=== PATIENT | male | born 1995 | race African-American/Black ===

== ENCOUNTER → 2019-11-14 | Emergency (ER) | payer MEDICAID ==
[~2019-11-14] VITALS: Ht 177.8 cm; Wt 83.9 kg
[~2019-11-14] MED LIST: ONDANSETRON HCL 4 MG/2 ML VIAL IV ONE; ONDANSETRON HCL 4 MG/2 ML VIAL ONE; PROMETHAZINE HCL 25 MG/ML 1ML IV ONE; SODIUM CHLORIDE 0.9% 1,000 ML IV ONE
[2019-11-14 01:40] VITALS: BP 137/79
[2019-11-14 03:00] LABS: Basophils # (auto) 0.2 10 ^3/uL (0-0.2); Basophils % (auto) 1.2 % (0.0-2.0); Eosinophils # (auto) 0 10 ^3/uL (0-0.8); Eosinophils % (auto) 0.3 % (0.0-7.0); Hematocrit 49.9 % (41.0-53.0); Hemoglobin 17.1 g/dL (13.5-17.5); Lymphocytes # (auto) 1.4 10 ^3/uL (0.4-5.4); Lymphocytes % (auto) 10.6 % (10.0-50.0); Mean Corpuscular Hemoglobin 33.9 pg (28.0-32.0); Mean Corpuscular Hgb Conc. 34.2 g/dL (32.0-36.0); Monocytes % (auto) 7.6 % (0.0-12.0); Neutrophils # (auto) 10.8 10 ^3/uL (1.6-8.6); Neutrophils % (auto) 80.3 % (37.0-80.0); Platelet Count (auto) 256 10^3/uL (140-450); Red Blood Cells 5.04 10^6/uL (4.5-5.90); Red Cell Distribution Width 14.1 % (11.8-14.3); White Blood Cell 13.4 10^3/uL (4.4-10.8)
[2019-11-14 03:05] LABS: Albumin 3.4 g/dL (3.4-5.0); BUN/Creatinine Ratio 10.7; Calcium 9.1 mg/dL (8.5-10.1); Potassium 4.2 mmol/L (3.5-5.1)
[2019-11-14 03:08] LABS: Bilirubin, Total 0.2 mg/dL (0.2-1.0); Total Protein 8.2 g/dL (6.4-8.2)
== END | disposition home or self-care (01) ==
LOC: ER 01:26
DX: K52.9 Noninfective gastroenteritis and colitis, unspecified (principal)
CPT/HCPCS: 36415; 74176; 80053; 82150; 83690; 85025; 96361; 96374; 96375; 99284; J2405; J2550

== ENCOUNTER 2022-10-04 06:45 | Emergency (ER) | payer MEDICAID ==
[~2022-10-04] VITALS: Ht 172.7 cm; Wt 94.8 kg
[2022-10-04 09:48] VITALS: BP 137/89
[2022-10-04] MEDS ORDERED: cefTRIAXone SOD 1,000 MG VL IM ONE (10:45)
[2022-10-04] MEDS ORDERED: DexAMETHasone SOD PHOS 10MG/1ML VIAL INJ IM ONE (10:45)
[2022-10-04] MEDS ORDERED: PENI500T2 PO (11:12)
[2022-10-04] MEDS ORDERED: ACET1CAP14 PO (11:12)
[2022-10-04] MEDS ORDERED: PRED20TA2 PO (11:12)
[2022-10-04] MEDS ORDERED: BENZ1LOZ3 MT (11:12)
== END 2022-10-04 11:43 | disposition home or self-care (01) ==
LOC: ER 06:45
DX: J02.0 Streptococcal pharyngitis (principal); Z79.899 Other long term (current) drug therapy
CPT/HCPCS: 87880; 96372; 99284; J0696; J1100

== ENCOUNTER 2024-12-20 06:24 | Inpatient (IN) | payer MEDICAID ==
[~2024-12-20] VITALS: Ht 162.6 cm; Wt 86.5 kg
[~2024-12-20 06:24] MED LIST changes: +ACET1CAP14 PO; +BENZ1LOZ3 MT; -ONDANSETRON HCL 4 MG/2 ML VIAL IV ONE; -ONDANSETRON HCL 4 MG/2 ML VIAL ONE; +PENI500T2 PO; +PRED20TA2 PO; -PROMETHAZINE HCL 25 MG/ML 1ML IV ONE; -SODIUM CHLORIDE 0.9% 1,000 ML IV ONE
--- NOTE | 2024-12-20 06:42 | ED.PDOC ---
HPI Comments 29 y/o M, brought in by mother presents to the ED for CC of chest pain. Patient states, that he has been experiencing left-sided chest pain with associated symptoms of shortness of breath since, 0300 this morning (12/20/24). Patient relays, that chest pain woke him up out of his sleep. Mother reports, patient has an appointment with his Chronic Manager tomorrow (12/21/24) for an echocardiogram. Patient denies dizziness, headache, back pain, or palpitations. No other symptoms or modifying factors present at this time. Time Seen by MD: 06:34 Reviewed Notes: Nurses Notes, Medications, Allergies Allergies: Coded Allergies: NO KNOWN ALLERGIES (Unverified , 11/14/19) Home Meds Active Scripts Acetaminophen (Tylenol) 325 Mg Cap, 325 MG PO Q4HPRN PRN, #30 CAP 0 Refills Take 1-2 caps po q4h prn for pain/fever Prov:SEGALLATHA JOSHUA [facility] 10/04/22 Benzocaine-Menthol (Mouth-Thro (Cepacol Sore Throat Extra 15-3.6 mg) 1 Blanca Blanca, 1 BLANCA MT Q2HPRN PRN, #16 BLANCA 0 Refills Prov:SEGALLATHA Cisneros [facility] 10/04/22 Prednisone (Prednisone) 20 Mg Tab, 20 MG PO DAILY for 5 Days, #5 TAB 0 Refills Prov:MARYURI SEGALRA Cisneros [facility] 10/04/22 Penicillin V Potassium (Veetids) 500 Mg Tab, 1 TAB PO BID for 10 Days, #20 TAB 0 Refills Prov:SEGALLATHA M [facility] 10/04/22 Information Source: Patient, Relative (Mother) Mode of Arrival: Ambulatory Severity: Moderate Timing: Hours Duration: Since onset Prehospital treatment: None Location: Chest (L) Radiation: No Radiation Quality: Sharp Onset: At Rest Cardiac Risk Factors: Hyperlipidemia PE Risk Factors: None History of: None Modifying Factors: Nothing Associated Signs and Symptoms: Palpitations Past Medical History PAST MEDICAL HISTORY: High Lipids Past Medical History (Other): DOWN SYNDROME, HEART MURMUR Surgical History: Denies all surgeries Family History Family History: Reviewed,noncontributory to illness Social History Smoker: Non-Smoker Alcohol: Denies ETOH Use Drugs: Denies Drug Use Lives In: Home Constitutional: reports: fatigue, weakness; denies: chills, diaphoresis, fever, malaise, sweats, others EENTM: denies: blurred vision, double vision, ear bleeding, ear discharge, ear drainage, ear pain, ear ringing, eye pain, eye redness, hearing loss, mouth pain, mouth swelling, nasal discharge, nose bleeding, nose congestion, nose pain, photophobia, tearing, throat pain, throat swelling, voice changes, others Respiratory: reports: shortness of breath; denies: cough, hemoptysis, orthopnea, SOB at rest, SOB with excertion, stridor, wheezing, others Cardiovascular: reports: chest pain; denies: dizzy spells, diaphoresis, Dyspnea on exertion, edema, irregular heart beat, left arm pain, lightheadedness, palpitations, PND, syncope, others Gastrointestinal: denies: abdomen distended, abdominal pain, blood streaked bowels, constipated, diarrhea, dysphagia, difficulty swallowing, hematemesis, melena, nausea, poor appetite, poor fluid intake, rectal bleeding, rectal pain, vomiting, others Genitourinary: denies: burning, dysuria, flank pain, frequency, hematuria, incontinence, penile discharge, penile sore, pain, testicle pain, testicle swelling, urgency, others Neurological: denies: dizziness, fainting, headache, left sided numbness, left sided weakness, numbness, paresthesia, pre-existing deficit, right sided numbness, right sided weakness, seizure, speech problems, tingling, tremors, weakness, others Musculoskeletal: denies: back pain, gout, joint pain, joint swelling, muscle pain, muscle stiffness, neck pain, others Integumetry: denies: bruises, change in color, change in hair/nails, dryness, laceration, lesions, lumps, rash, wounds, others Allergic/Immunocompromised: denies: Difficulty Healing, Frequent Infections, Hives, Itching, others Hematologic/Lymphatic: denies: anemia, blood clots, easy bleeding, easy bruising, swollen glands, others Endocrine: denies: excessive hunger, excessive sweating, excessive thirst, excessive urination, flushing, intolerance to cold, intolerance to heat, unexplained weight gain, unexplained weight loss, others Psychiatric: denies: anxiety, bipolar disorder, depression, hopeless, panic disorder, schizophrenia, sleepless, suicidal, others All Other Systems: Reviewed and Negative Physical Exam General Appearance: Moderate Distress, Obese HEENT: Normal ENT Inspection, Pharynx Normal, TMs Normal Neck: Full Range of Motion, Non-Tender, Normal, Normal Inspection Respiratory: Chest Non-Tender, Lungs Clear, No Accessory Muscle Use, No Respiratory Distress, Normal Breath Sounds Cardiovascular: No Edema, No JVD, No Murmur, No Gallop, Normal Peripheral Pulses, Regular Rate/Rhythm Breast Exam: Deferred Gastrointestinal: No Organomegaly, Non Tender, No Pulsatile Mass, Normal Bowel Sounds, Soft Genitalia: Deferred Pelvic: Deferred Rectal: Deferred Extremities: No calf tenderness, Normal capillary refill, Normal inspection, Normal range of motion, Non-tender, No pedal edema Musculoskeletal : Apperance: Normal Neurologic: Alert, 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 Was a procedure done?: No CP Differential Dx Differential Diagnosis: N/A Differential Diagnosis: Chest Wall Pain, Costochondritis, Pneumonia X-Ray, Labs, Meds, VS Vital Signs Date Time Temp Pulse Resp B/P (MAP) Pulse Ox O2 Delivery O2 Flow Rate FiO2 12/20/24 08:00 56 12/20/24 08:00 66 16 99 Room Air* 0 21 12/20/24 07:45 98.5 66 16 127/46 (73) 99 98.5 12/20/24 07:26 75 12/20/24 06:51 83 100 Room Air* 0 21 12/20/24 06:50 98.7 52 18 148/53 (84) 99 98.7 12/20/24 06:42 88 12/20/24 06:34 88 12/20/24 06:34 97.9 82 16 131/51 (77) 97 97.9 Lab Test 12/20/24 07:28 12/20/24 06:40 Range/Units Troponin I High Sensitivity 9 9 </=54 ng/L White Blood Count 6.8 4.4-10.8 10^3/uL Red Blood Count 4.99 4.5-5.90 10^6/uL Hemoglobin 15.1 13.5-17.5 g/dL Hematocrit 45.5 41.0-53.0 % Mean Corpuscular Volume 91.1 80.0-100.0 fL Mean Corpuscular Hemoglobin 30.3 28.0-32.0 pg Mean Corpuscular Hemoglobin Concent 33.3 32.0-36.0 g/dL Red Cell Distribution Width 15.9 H 11.8-14.3 % Platelet Count 230 140-450 10^3/uL Mean Platelet Volume 8.9 6.9-10.8 fL Neutrophils (%) (Auto) 57.8 37.0-80.0 % Lymphocytes (%) (Auto) 22.1 10.0-50.0 % Monocytes (%) (Auto) 14.5 H 0.0-12.0 % Eosinophils (%) (Auto) 1.4 0.0-7.0 % Basophils (%) (Auto) 4.2 H 0.0-2.0 % Neutrophils # (Auto) 3.9 1.6-8.6 10 ^3/uL Lymphocytes # (Auto) 1.5 0.4-5.4 10 ^3/uL Monocytes # (Auto) 1.0 0-1.3 10 ^3/uL Eosinophils # (Auto) 0.1 0-0.8 10 ^3/uL Basophils # (Auto) 0.3 H 0-0.2 10 ^3/uL Nucleated Red Blood Cells 0.1 % Prothrombin Time 10.6 9.3-11.8 sec Prothrombin Time INR 1.00 0.9-1.15 Activated Partial Thromboplast Time 26.5 24.5-34.5 SEC D-Dimer, Quantitative 0.27 0.0-0.49 mg/L FEU Sodium Level 142 136-145 mmol/L Potassium Level 4.3 3.5-5.1 mmol/L Chloride Level 107 98-107 mmol/L Carbon Dioxide Level 28 20-31 mmol/L Anion Gap 7 5-15 Blood Urea Nitrogen 15 9-23 mg/dL Creatinine 0.94 0.700-1.30 mg/dL Glomerular Filtration Rate Calc 112 >90 mL/min BUN/Creatinine Ratio 16.0 10.0-20.0 Serum Glucose 126 H 74-106 mg/dL Calcium Level 10.3 8.7-10.4 mg/dL Current Medications Medications (Trade) Dose Ordered Sig/Latoya Route Start Time Stop Time Status Last Admin Aspirin 162 mg ONCE ONCE PO 12/20/24 06:45 12/20/24 06:46 DC 12/20/24 07:04 The CBC is within normal limits An IV Hep-Lock was established The patient was given aspirin 162 mg by mouth The chemistry panel is within normal limits The patient is being admitted to the hospitalist The chest x-ray shows: No sign of any abnormalities The D-dimer is within normal limits The patient's troponin level is negative The patient was being admitted Images Reviewed?: Images reviewed and evaluated by me Time of 1ST Reevaluation: 07:04 Reevaluation 1ST: Unchanged Patient Education/Counseling: Diagnosis, Treatment, Prognosis Family Education/Counseling: Diagnosis, Treatment, Prognosis Departure 1 Departure Time of Disposition: 07:32 Impression: Primary Impression: Acute chest pain Additional Impressions: Tachyarrhythmia Down syndrome Disposition: ADMITTED INPATIENT Admit to: Tele Condition: Fair Critical Care Note Critical Care Time?: Yes (45 min-critical care time only) Stability Stability form required: Yes Unstable for transfer: Telemetry monitoring (Telemetry monitoring required), ED Physician Assesment (Clinical assesment) Heart Score Heart Score: Heart Score Response (Comments) Value History Moderate Suspicious 1 EKG Repolarization Disturb 1 Age <45 0 Risk Factors 1 or 2 risk factors 1 Troponin Normal limit 0 Total 3 I personally scribed for JACQUE BAHENA MD ([email or web address]) on 12/20/24 at 06:42. Electronically submitted by Sherri Anaya ([email or web address]). I personally scribed for JACQUE BAHENA MD ([email or web address]) on 12/20/24 at 08:17. E lectronically submitted by Sherri Anaya ([email or web address]). JACQUE BAHENA MD December 20, 2024 06:42 ALYSSA COELHO MD December 20, 2024 07:33
[2024-12-20 06:51] VITALS: RESP 83; O2SAT 100
[2024-12-20] MEDS: ASPirin 81 mg TAB PO ONE (07:04)
--- NOTE | 2024-12-20 07:14 | DVH ---
EXAM: XR Chest, 1 View CLINICAL INDICATION: CP TECHNIQUE: Frontal view of the chest. COMPARISON: None FINDINGS: LUNGS AND PLEURAL SPACES: Unremarkable. No consolidation. No pneumothorax. HEART: Unremarkable. No cardiomegaly. MEDIASTINUM: Unremarkable. Normal mediastinal contour. BONES/JOINTS: Unremarkable. No acute fracture. OTHER FINDINGS: . None. IMPRESSION: No acute cardiopulmonary process.
[2024-12-20 07:29] LABS: Basophils # (auto) 0.3 10 ^3/uL (0-0.2); Basophils % (auto) 4.2 % (0.0-2.0); Eosinophils # (auto) 0.1 10 ^3/uL (0-0.8); Eosinophils % (auto) 1.4 % (0.0-7.0); Hematocrit 45.5 % (41.0-53.0); Hemoglobin 15.1 g/dL (13.5-17.5); Lymphocytes # (auto) 1.5 10 ^3/uL (0.4-5.4); Lymphocytes % (auto) 22.1 % (10.0-50.0); Mean Corpuscular Hemoglobin 30.3 pg (28.0-32.0); Mean Corpuscular Hgb Conc. 33.3 g/dL (32.0-36.0); Mean Corpuscular Volume 91.1 fL (80.0-100.0); Monocytes % (auto) 14.5 % (0.0-12.0); Neutrophils # (auto) 3.9 10 ^3/uL (1.6-8.6); Neutrophils % (auto) 57.8 % (37.0-80.0); Nucleated Red Blood Cells % 0.1 %; Platelet Count (auto) 230 10^3/uL (140-450); Red Blood Cells 4.99 10^6/uL (4.5-5.90); Red Cell Distribution Width 15.9 % (11.8-14.3); White Blood Cell 6.8 10^3/uL (4.4-10.8)
[2024-12-20 07:31] LABS: Anion Gap 7 (5-15); Carbon Dioxide 28 mmol/L (20-31); Chloride 107 mmol/L (98-107); Potassium 4.3 mmol/L (3.5-5.1); Sodium 142 mmol/L (136-145)
[2024-12-20 07:32] LABS: Calcium 10.3 mg/dL (8.7-10.4)
[2024-12-20 07:34] LABS: Partial Thromboplastin Time 26.5 SEC (24.5-34.5); Prothrombin Time 10.6 sec (9.3-11.8)
[2024-12-20 07:37] LABS: Blood Urea Nitrogen 15 mg/dL (9-23); Glucose 126 mg/dL (74-106)
[2024-12-20 08:00] VITALS: PULSE 66; RESP 16; O2SAT 99
[2024-12-20] MEDS ORDERED: MORPHINE SULFATE 4 MG/ML SYR/VIAL IV PRN (10:45)
[2024-12-20] MEDS ORDERED: NITROGLYCERIN 0.4 MG SL TAB SL PRN ×2 (10:45)
[2024-12-20] MEDS ORDERED: ONDANSETRON HCL 4 MG/2 ML VIAL IV PRN (10:45)
[2024-12-20] MEDS ORDERED: MORPHINE SULFATE INJ 2 MG/ml SYRG IV PRN (10:45)
--- NOTE | 2024-12-20 11:15 | DVHHP2 ---
History of Present Illness Reason for Visit: Palpitations History of Present Illness Julito Leija is a 29-year-old male with past medical history of hyperlipidemia, heart murmur, and Down syndrome who presents to the ED with chest pain and palpitations x1 day. Patient's mom mom reports that the chest pain was radiating labs with shortness of breath and it started in his sleep. Patient's mom reported that he was grabbing his chest and told his mom that it was my heart". Mom states that he was to have an echo done tomorrow. Patient's mom reports that he has been having arrhythmias for quite some time now and sees a neurophysiological technician on [address]. Patient's mom also states that he has been having periods of syncope. She also reports that he has been having a dry cough and was given promethazine to take. She also states patient is in an IDP program since 2019 which is similar to the [facility]. Patient's mom denies any recent trauma or injury, recent sick contacts, recent travels, abdominal pain, nausea, vomiting, diarrhea, lightheadedness, weakness, dizziness. Cardiovascular: hyperipidemia, Other (Heart murmur) Past Medical History Down syndrome Past Surgical History: None Family History: Cancer, Other (Mom with breast cancer status post mastectomy, hypertension, and gout, dad from COVID 6 years ago) Smoke: No ALCOHOL: none Drugs: None Lives: with Family Domestic Violence: Neg Review of Systems Respiratory: Shortness of breath Cardiovascular: Chest Pain, Palpitations Allergies: Coded Allergies: NO KNOWN ALLERGIES (Unverified , 11/14/19) Medications Current Medications Medications Dose Ordered Sig/Latoya Route Start Time Stop Time Status Last Admin Dose Admin Aspirin 81 mg DAILY PO 12/21/24 10:00 UNV Atorvastatin Calcium 40 mg HS PO 12/20/24 22:00 UNV Morphine Sulfate 2 mg Q30MP PRN IV 12/20/24 10:45 UNV Acetaminophen 650 mg Q6HP PRN PO 12/20/24 10:45 UNV Nitroglycerin 0.4 mg Q5MINP PRN SL 12/20/24 10:45 UNV Ondansetron HCl 4 mg Q4HP PRN IV 12/20/24 10:45 UNV Nitroglycerin 0.4 mg Q5MINP PRN SL 12/20/24 10:45 UNV Morphine Sulfate 2 mg Q30M PRN IV 12/20/24 10:45 UNV Exam Vital Signs Vital Signs Date Time Temp Pulse Resp B/P (MAP) Pulse Ox O2 Delivery O2 Flow Rate FiO2 12/20/24 09:40 83 13 130/60 (83) 97 12/20/24 08:00 Room Air* 0 21 12/20/24 07:45 98.5 98.5 General Appearance: Alert, Oriented X3, Cooperative HEENT: Atraumatic, PERRLA, EOMI, Mucous membr. moist/pink Respiratory: Clear to auscultation, Normal air movement Cardiovascular: Normal S1, Normal S2 Abdominal: Normal bowel sounds, Soft, No tenderness, No hepatospenomegaly Extremities: No cyanosis Neuro: Normal speech, Sensation intact Psych/Mental Status: Mental status NL Labs/Xrays Labs Test 12/20/24 09:38 12/20/24 06:40 Range/Units Troponin I High Sensitivity 10 </=54 ng/L White Blood Count 6.8 4.4-10.8 10^3/uL Red Blood Count 4.99 4.5-5.90 10^6/uL Hemoglobin 15.1 13.5-17.5 g/dL Hematocrit 45.5 41.0-53.0 % Mean Corpuscular Volume 91.1 80.0-100.0 fL Mean Corpuscular Hemoglobin 30.3 28.0-32.0 pg Mean Corpuscular Hemoglobin Concent 33.3 32.0-36.0 g/dL Red Cell Distribution Width 15.9 H 11.8-14.3 % Platelet Count 230 140-450 10^3/uL Mean Platelet Volume 8.9 6.9-10.8 fL Neutrophils (%) (Auto) 57.8 37.0-80.0 % Lymphocytes (%) (Auto) 22.1 10.0-50.0 % Monocytes (%) (Auto) 14.5 H 0.0-12.0 % Eosinophils (%) (Auto) 1.4 0.0-7.0 % Basophils (%) (Auto) 4.2 H 0.0-2.0 % Neutrophils # (Auto) 3.9 1.6-8.6 10 ^3/uL Lymphocytes # (Auto) 1.5 0.4-5.4 10 ^3/uL Monocytes # (Auto) 1.0 0-1.3 10 ^3/uL Eosinophils # (Auto) 0.1 0-0.8 10 ^3/uL Basophils # (Auto) 0.3 H 0-0.2 10 ^3/uL Nucleated Red Blood Cells 0.1 % Prothrombin Time 10.6 9.3-11.8 sec Prothrombin Time INR 1.00 0.9-1.15 Activated Partial Thromboplast Time 26.5 24.5-34.5 SEC D-Dimer, Quantitative 0.27 0.0-0.49 mg/L FEU Sodium Level 142 136-145 mmol/L Potassium Level 4.3 3.5-5.1 mmol/L Chloride Level 107 98-107 mmol/L Carbon Dioxide Level 28 20-31 mmol/L Anion Gap 7 5-15 Blood Urea Nitrogen 15 9-23 mg/dL Creatinine 0.94 0.700-1.30 mg/dL Glomerular Filtration Rate Calc 112 >90 mL/min BUN/Creatinine Ratio 16.0 10.0-20.0 Serum Glucose 126 H 74-106 mg/dL Calcium Level 10.3 8.7-10.4 mg/dL EXAM: XR Chest, 1 View CLINICAL INDICATION: CP TECHNIQUE: Frontal view of the chest. COMPARISON: None FINDINGS: LUNGS AND PLEURAL SPACES: Unremarkable. No consolidation. No pneumothorax. HEART: Unremarkable. No cardiomegaly. MEDIASTINUM: Unremarkable. Normal mediastinal contour. BONES/JOINTS: Unremarkable. No acute fracture. OTHER FINDINGS: . None. IMPRESSION: No acute cardiopulmonary process. 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 Procedure Category Date Status Time Echo 2d Mode Cardiac US 12/20/24 Logged DOP 10:34 Drug Screen LAB 12/20/24 Logged 10:34 Thyroid Stimulating LAB 12/20/24 Logged Hormone 10:34 Lipid Panel LAB 12/20/24 Logged 10:34 Hemoglobin A1c LAB 12/20/24 Logged 10:34 * Cardiology Consult CONS 12/20/24 Transmitted 10:34 Admit ADMIT 12/20/24 Transmitted 10:34 Code Status CODE 12/20/24 Transmitted 10:34 Vital Signs ANDRES 12/20/24 In Process 10:34 Translational Specialist ANDRES 12/20/24 In Process 10:34 Cardiac DIET 12/20/24 Transmitted Diet-2gna,Lofat,Lochol Lunch Aspirin Tablet PHA 12/21/24 Logged 10:00 Atorvastatin (Lipitor) PHA 12/20/24 Logged 22:00 Morphine Sulfate PHA 12/20/24 Logged Injection 10:45 Acetaminophen Tablet PHA 12/20/24 Logged (Tylenol Tablet) 10:45 Complete Blood Count LAB 12/21/24 Verified 04:00 Basic Metabolic Panel LAB 12/21/24 Verified 04:00 Magnesium LAB 12/21/24 Verified 04:00 Nitroglycerin PHA 12/20/24 Logged Sublingual (Ntrostat 10:45 Ondansetron Hcl PHA 12/20/24 Logged (Zofran) 10:45 Electrocardigram EKG 12/20/24 Logged 10:34 Cardiac ANDRES 12/20/24 In Process Rehabilitation - Outpa Nitroglycerin PHA 12/20/24 Logged Sublingual (Ntrostat 10:45 Morphine Sulfate PHA 12/20/24 Logged Injection 10:45 Stat Ekg For Chest ANDRES 12/20/24 In Process Pain 10:34 Notify Md Of Changes ANDRES 12/20/24 In Process From Base 10:34 Carpentry Instructor For ANDRES 12/20/24 In Process 24 Hours 10:34 Emergency Dysrhythmia ANDRES 12/20/24 In Process Protocol 10:34 Rhythm Strips Once ANDRES 12/20/24 In Process Every Shift 10:34 Oxygen By Nasal RT 12/20/24 Transmitted Cannula 10:34 Date of Service: December 20, 2024 Billing Provider: YUSUF CONWAY Common Visit Codes: [id number] INP/OBS CARE (HIGH) YUSUF CONWAY December 20, 2024 11:15
[2024-12-20 11:20] LABS: Urine Bacteria None Seen /hpf (None Seen)
[2024-12-20 11:35] LABS: Urine Blood Negative /uL (Negative); Urine Clarity Clear (Clear); Urine Color Colorless (Yellow); Urine Protein, UAD Negative (Negative); Urine Specific Gravity 1.007 (1.001-1.035); Urine Squamous Epithelial Cell None Seen /hpf (<5); Urine Urobilinogen Normal (Negative); Urine WBC < 1 /HPF (0-3); Urine pH 5.5 (5.0-9.0)
[2024-12-20 11:43] LABS: Amphetamine Screen, Urine Neg (NEGATIVE); Barbiturate Scree,Urine Neg (NEGATIVE); Benzodiazephine Screen, Urine Neg (NEGATIVE); Cannabinoid Screen, Urine Neg (NEGATIVE); Cocaine Screen, Urine Neg (NEGATIVE); Opiate Scree,Urine Neg (NEGATIVE); Phencyclidine Screen, Urine Neg (NEGATIVE)
[2024-12-20] MEDS ORDERED: PROM1SOL4 (11:45)
[2024-12-20 13:02] LABS: Cholesterol 173 mg/dL (< 200); HDL Cholesterol 37 mg/dL (40-59); LDL Cholesterol 120 mg/dL (< 100); Triglycerides 183 mg/dL (< 150)
[2024-12-20] MEDS: PROMETHAZINE-DM 5 ML ORAL SYRUP PO SCH (13:25)
[2024-12-20] MEDS: ACETAMINOPHEN 325 MG TAB PO PRN (13:35)
--- NOTE | 2024-12-20 17:00 | DVHSR ---
APPROVED REPORT EXAM: LIMITED Two-dimensional and M-mode echocardiogram with Doppler and color Doppler. Blood Pressure: 109/59 mmHg INDICATION Chest Pain RISK FACTORS Height: 5' 4", Weight: 192 DIMENSIONS LVDd4.4 (3.8-5.7cm)LA (2D)3.7 (1.9-4.0cm)Aortic Root2.3 (2.0-3.7cm) LVDs2.8 (2.5-4.0cm)LA (MM) (1.9-4.0cm)Aortic Cusp Exc1.4 (1.5-2.0cm) EF (%) 68.0 (55-70%)Rt. Atrium4.2 (1.9-4.0cm)Asc. Aorta cm IVSd0.8 (0.7-1.1cm)RV (D) (1.8-2.4cm) PWd1.0 (0.7-1.1cm) Mitral Valve MitralMitral Stenosis E wave1.50m/sMV Mean GR.mmHg A wave0.70m/sMV Peak GR.mmHg E/A ratio2.12D MVAcm2 Aortic Valve Aortic ValveAortic Stenosis V11.40m/Alina Mean GR.10mmHg V22.20m/Alina Peak GR.20mmHg LVOT Diameter1.8 (1.8-2.4cm)Doppler AVA1.62cm2 Pulmonic Valve V21.40m/s Tricuspid Valve TR Velocity2.90m/s [id number] Other Information Quality : Rhythm : Bradycardia Conclusion Technically good study. Significant sinus bradycardia. Right atrial enlargement. Valves are normal. EF of 65-70% with normal RV function. Dopplers unremarkable. No pericardial effusion masses or vegetations.
--- NOTE | 2024-12-20 18:26 | ECG ---
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
[2024-12-20 19:30] VITALS: PULSE 71; RESP 22; O2SAT 94
[2024-12-20 21:00] VITALS: BP 120/58; PULSE 60; PULSE 65; RESP 16; TEMP 98.1; O2SAT 96
[2024-12-20 21:07] VITALS: BP 129/66; PULSE 61; RESP 17; TEMP 98.5; O2SAT 99
[2024-12-20] MEDS: ATORVASTATIN 20 MG TAB PO SCH (23:30)
[2024-12-21 05:00] VITALS: BP 136/67; PULSE 75; RESP 16; TEMP 97.8; O2SAT 94
[2024-12-21 06:10] LABS: Basophils # (auto) 0.2 10 ^3/uL (0-0.2); Basophils % (auto) 3.1 % (0.0-2.0); Eosinophils # (auto) 0.1 10 ^3/uL (0-0.8); Eosinophils % (auto) 1.5 % (0.0-7.0); Hematocrit 44.4 % (41.0-53.0); Hemoglobin 14.9 g/dL (13.5-17.5); Lymphocytes # (auto) 1.5 10 ^3/uL (0.4-5.4); Lymphocytes % (auto) 27.3 % (10.0-50.0); Mean Corpuscular Hemoglobin 30.7 pg (28.0-32.0); Mean Corpuscular Hgb Conc. 33.5 g/dL (32.0-36.0); Mean Corpuscular Volume 91.8 fL (80.0-100.0); Monocytes # (auto) 0.9 10 ^3/uL (0-1.3); Monocytes % (auto) 16.2 % (0.0-12.0); Neutrophils # (auto) 2.8 10 ^3/uL (1.6-8.6); Neutrophils % (auto) 51.9 % (37.0-80.0); Nucleated Red Blood Cells % 0.2 %; Platelet Count (auto) 226 10^3/uL (140-450); Red Blood Cells 4.84 10^6/uL (4.5-5.90); White Blood Cell 5.4 10^3/uL (4.4-10.8)
[2024-12-21 06:29] LABS: Potassium 4.2 mmol/L (3.5-5.1); Sodium 140 mmol/L (136-145)
[2024-12-21 06:30] LABS: Anion Gap 7 (5-15); Carbon Dioxide 25 mmol/L (20-31)
[2024-12-21 06:33] LABS: Chloride 108 mmol/L (98-107)
[2024-12-21 06:35] LABS: BUN/Creatinine Ratio 16.3 (10.0-20.0); Blood Urea Nitrogen 13 mg/dL (9-23); Glucose 105 mg/dL (74-106)
[2024-12-21 06:36] LABS: Magnesium 2.1 mg/dL (1.6-2.6)
--- NOTE | 2024-12-21 06:54 | ECG ---
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
--- NOTE | 2024-12-21 07:18 | DVHINCON2 ---
Date of service: December 21, 2024 History of Present Illness HPI Patient is a 29-year-old gentleman who was brought to the hospital for chest pain and palpitations. Does have history of Down syndrome. Has seen caddy master as outpatient for palpitation before. Chest pain has been atypical. Home Meds Active Scripts Acetaminophen (Tylenol) 325 Mg Cap, 325 MG PO Q4HPRN PRN, #30 CAP 0 Refills Take 1-2 caps po q4h prn for pain/fever Prov:LATHA SEGAL [facility] 10/04/22 Benzocaine-Menthol (Mouth-Thro (Cepacol Sore Throat Extra 15-3.6 mg) 1 Blanca Blanca, 1 BLANCA MT Q2HPRN PRN, #16 BLANCA 0 Refills Prov:LATHA SEGAL [facility] 10/04/22 Prednisone (Prednisone) 20 Mg Tab, 20 MG PO DAILY for 5 Days, #5 TAB 0 Refills Prov:LATHA SEGAL [facility] 10/04/22 Penicillin V Potassium (Veetids) 500 Mg Tab, 1 TAB PO BID for 10 Days, #20 TAB 0 Refills Prov:LATHA SEGAL [facility] 10/04/22 Reported Medications Promethazine-Dm (Promethazine Dm 6.25-15 mg/5Ml) 1 Laila Laila 12/20/24 Past Medical History Others Past medical history includes Down syndrome, obesity, hyperlipidemia and heart murmur. He does snore. Patient Family History: Diabetes mellitus G8 FATHER FH: breast cancer G8 MOTHER Hypertension G8 MOTHER G8 FATHER Kidney disease in father G8 FATHER Alocohol: None Drugs: None Lives with: With family Review of Systems Constitutional: No symptom reported Ears, Nose, & Throat: No symptom reported Cardiovascular: Chest Pain, Palpitations Gastrointestinal: No symptom reported All Other Systems Fourteen point review of systems performed. Many information was obtained from the sister at the bedside and mother on the phone. Relevant findings as per above and as per HPI. Otherwise negative. H&P Exam Vital Signs Vital Signs Date Time Temp Pulse Resp B/P (MAP) Pulse Ox O2 Delivery O2 Flow Rate FiO2 12/21/24 05:00 97.8 75 16 136/67 (90) 94 97.8 12/20/24 21:07 Room Air* 0 21 General Appeara: Well developed, Obese Head Exam: Normal inspection Neck Exam: Normal inspection Eye Exam: bilateral eye PERRL Nasal Exam: Normal inspection Mouth: Normal Inspection Pulmonary/Respiratory: Normal inspection Cardiovascular/Chest: Normal inspection Peripheral Pulses: 2+ carotid (R), 2+ carotid (L), 2+ femoral (R), 2+ femoral (L), 2+ dorsalis pedis (R), 2+ dorsalis pedis (L), 2+ Radial (R), 2+ Radial (L) Abdominal Exam: Normal bowel sounds, Soft Eye contact/ Speech: Cooperative Labs/Xrays Labs Test 12/21/24 04:41 12/20/24 10:34 12/20/24 09:38 12/20/24 06:40 Range/Units White Blood Count 5.4 4.4-10.8 10^3/uL Red Blood Count 4.84 4.5-5.90 10^6/uL Hemoglobin 14.9 13.5-17.5 g/dL Hematocrit 44.4 41.0-53.0 % Mean Corpuscular Volume 91.8 80.0-100.0 fL Mean Corpuscular Hemoglobin 30.7 28.0-32.0 pg Mean Corpuscular Hemoglobin Concent 33.5 32.0-36.0 g/dL Red Cell Distribution Width 16.0 H 11.8-14.3 % Platelet Count 226 140-450 10^3/uL Mean Platelet Volume 9.1 6.9-10.8 fL Neutrophils (%) (Auto) 51.9 37.0-80.0 % Lymphocytes (%) (Auto) 27.3 10.0-50.0 % Monocytes (%) (Auto) 16.2 H 0.0-12.0 % Eosinophils (%) (Auto) 1.5 0.0-7.0 % Basophils (%) (Auto) 3.1 H 0.0-2.0 % Neutrophils # (Auto) 2.8 1.6-8.6 10 ^3/uL Lymphocytes # (Auto) 1.5 0.4-5.4 10 ^3/uL Monocytes # (Auto) 0.9 0-1.3 10 ^3/uL Eosinophils # (Auto) 0.1 0-0.8 10 ^3/uL Basophils # (Auto) 0.2 0-0.2 10 ^3/uL Nucleated Red Blood Cells 0.2 % Sodium Level 140 136-145 mmol/L Potassium Level 4.2 3.5-5.1 mmol/L Chloride Level 108 H 98-107 mmol/L Carbon Dioxide Level 25 20-31 mmol/L Anion Gap 7 5-15 Blood Urea Nitrogen 13 9-23 mg/dL Creatinine 0.80 0.700-1.30 mg/dL Glomerular Filtration Rate Calc 122 >90 mL/min BUN/Creatinine Ratio 16.3 10.0-20.0 Serum Glucose 105 74-106 mg/dL Calcium Level 10.0 8.7-10.4 mg/dL Magnesium Level 2.1 1.6-2.6 mg/dL Urine Opiates Screen Neg NEGATIVE Urine Fentanyl Screen Neg NEGATIVE Urine Barbiturates Screen Neg NEGATIVE Urine Phencyclidine Screen Neg NEGATIVE Urine Amphetamines Screen Neg NEGATIVE Urine Benzodiazepines Screen Neg NEGATIVE Urine Cocaine Screen Neg NEGATIVE Urine Cannabinoids Screen Neg NEGATIVE Troponin I High Sensitivity 10 </=54 ng/L Triglycerides Level 183 H < 150 mg/dL Cholesterol Level 173 < 200 mg/dL LDL Cholesterol 120 H < 100 mg/dL HDL Cholesterol 37 L 40-59 mg/dL Thyroid Stimulating Hormone (TSH) < 0.01 L 0.55-4.78 uIU/mL Prothrombin Time 10.6 9.3-11.8 sec Prothrombin Time INR 1.00 0.9-1.15 Activated Partial Thromboplast Time 26.5 24.5-34.5 SEC D-Dimer, Quantitative 0.27 0.0-0.49 mg/L FEU Hemoglobin A1c 5.6 <5.7 % A1C Test 12/20/24 06:32 Range/Units Urine Color Colorless Yellow Urine Clarity Clear Clear Urine pH 5.5 5.0-9.0 Urine Specific [place] 1.007 1.001-1.035 Urine Protein Negative Negative Urine Ketones Negative Negative Urine Blood Negative Negative /uL Urine Nitrite Negative Negative Urine Bilirubin Negative Negative Urine Urobilinogen Normal Negative mg/dL Urine Leukocyte Esterase Negative Negative /uL Urine RBC None seen 0 - 3 /hpf Urine Microscopic WBC < 1 0-3 /HPF Urine Squamous Epithelial Cells None seen <5 /hpf Urine Bacteria None seen None Seen /hpf Urine Glucose Normal Normal mg/dL Assessment/Plan Plan Patient is a 29-year-old gentleman who was brought to the hospital for chest pain and palpitations. Does have history of Down syndrome. Has seen caddy master as outpatient for palpitation before. Chest pain has been atypical. Not in acute distress. No JVD. Mucosa is pink and wet. No goiter. Lungs are clear to auscultation. Cardiac: Regular, no thrill/gallop. Abdomen is soft and obese. Bowel sound is positive. There was no gross mass. Extremities do not reveal edema. Past medical history includes Down syndrome, obesity, hyperlipidemia and heart murmur. He does snore. D-dimer: 0.27 (within normal limits) Troponin (high sensitive): 9 9 - 10 TSH: <0.01 Chest x-ray: IMPRESSION: No acute cardiopulmonary process. EKG reveals sinus rhythm Tele reveals sinus rhythm, occasions of SVT are seen. Sinus pause up to 3 seconds at night (when the patient was sleeping) was seen Echocardiogram reported: Technically good study. Significant sinus bradycardia. Right atrial enlargement. Valves are normal. EF of 65-70% with normal RV function. Dopplers unremarkable. No pericardial effusion masses or vegetations. Patient is a 29-year-old gentleman who presented with atypical chest pain. High sensitive, serial troponin has been negative. Acute coronary syndrome is not considered. Does have occasions for palpitation. Tele reveals occasions of SVT. There has been some sinus pause when the patient was sleep. Patient does now. Presentation is in favor of sleep apnea. There is no indication for pacemaker at this point. Low TSH points to possible hyperthyroidism which could be itself contribute to some tachyarrhythmia. Chest pain, atypical Palpitations SVT Sleep apnea, to be considered Low TSH Hyperthyroidism? Cardiac suggestion for management: Manage on telemetry Follow-up electrolytes and kidney function tests and correct abnormalities Cardiac-hernandes, the patient can be followed as outpatient Evaluation and management of possible hyperparathyroidism as per primary team Thank you for consultation Further evaluation and management depends on the above and clinical course A total of 75 minutes was spent reviewing the patient record, examining the patient, making a diagnostic and therapeutic plan, discussing this plan with medical personnel, following up on diagnostic studies and following the patient for clinical stability excluding any and all procedures. At least 50% of this time was spent in direct, [id number] contact. Thank you for allowing me to participate in this patient's care. Further recommendations will depend on patient's clinical course. Please do not hesitate to contact me if you have any questions or concerns. This medical document was created using electronic medical record system with [employer] computerized dictation system. Although this document has been carefully reviewed, there may still be some phonetic and typographical errors. These areas are purely typographical due to the imperfection of the software programs, and do not reflect any compromise in the patient's medical care. Plan discussed with: Patient, Other (nurse) EDITH RAMIREZ MD December 21, 2024 07:18
[2024-12-21 08:00] VITALS: PULSE 56; PULSE 63; RESP 19; O2SAT 97
[2024-12-21 09:00] VITALS: BP 126/66; PULSE 89; RESP 20; TEMP 98; O2SAT 90
--- NOTE | 2024-12-21 11:11 | DVHPNRES ---
Progress Note Date Seen: December 21, 2024 Resident Creating Document: BHAKTI FRANK RESIDENT Medical Necessity Reason Pt with a Central, PICC or Fol: No Subjective Review of Systems Patient seen and examined at bedside Pleasant present, not in acute distress No active chest pain at this point Telemetry shows sinus rhythm, heart rate ranging 60-70 per minute EKG sinus rhythm The past medical history: Down syndrome, obesity, hyperlipidemia ROS: Constitutional: Denies weight loss, fever and chills. HEENT: Denies changes in vision and hearing. Respiratory: Denies shortness of breath and cough Cardiovascular: Denies chest discomfort or palpitations GI: Denies abdominal pain, nausea, vomiting and diarrhea. : Denies dysuria and urinary frequency. Musculoskeletal: Denies myalgias and joint pain Skin: Denies rash and pruritus. Neurological: Denies dizziness, headache, vision or hearing problems Objective vital signs Vital Sign Date Time Temp Pulse Resp B/P (MAP) Pulse Ox O2 Delivery O2 Flow Rate FiO2 12/21/24 09:00 98.0 89 20 126/66 (86) 90 98.0 12/20/24 21:07 Room Air* 0 21 Total Intake and Output 12/20/24 12/20/24 12/21/24 15:00 23:00 07:00 Intake Total 600 ml Output Total 0 ml Balance 600 ml medications Current Medications Medications Dose Ordered Sig/Latoya Route Start Time Stop Time Status Last Admin Dose Admin Aspirin 81 mg DAILY PO 12/21/24 10:00 Atorvastatin Calcium 40 mg HS PO 12/20/24 22:00 12/20/24 23:30 40 MG Morphine Sulfate 2 mg Q30MP PRN IV 12/20/24 10:45 UNV Acetaminophen 650 mg Q6HP PRN PO 12/20/24 10:45 12/20/24 13:35 650 MG Nitroglycerin 0.4 mg Q5MINP PRN SL 12/20/24 10:45 Ondansetron HCl 4 mg Q4HP PRN IV 12/20/24 10:45 Nitroglycerin 0.4 mg Q5MINP PRN SL 12/20/24 10:45 UNV Morphine Sulfate 2 mg Q30M PRN IV 12/20/24 10:45 Promethazine HCl/ Dextromethorphan 6.25 ml QIDPRN PO 12/20/24 12:00 Hold Examination Physical examination Pleasant man, not in acute distress. Alert and oriented time place and person. General: Patient alert and oriented in person, place and time. Patient following commands. HEENT: Normocephalic, atraumatic, moist mucous membranes Respiratory/pulmonary: Clear lungs bilaterally, vesicular murmurs present in almost all lung chadwick, no associated crackles or wheezes. Cardiovascular: Normal heart sounds S1 and S2 with no associated murmurs Abdomen: Abdomen nondistended, there is no pain to palpation in any of the abdominal quadrants, no palpable masses. Extremities: There is no peripheral edema present at the lower extremities. Peripheral Pulses: 3+ Radial (R). 3+ Radial (L). 3+ Dorsalis pedis (R). 3+ Dorsalis pedis(L) Skin: No rashes or pruritus, there is no sacral edema present at this time. Neurological: Intact cranial nerves with no focal neurologic deficits laboratory and microbiology Laboratory Tests 12/21/24 04:41 Test 12/21/24 04:41 Range/Units Serum Glucose 105 74-106 mg/dL Labs and/or images reviewed: Labs reviewed by me, Image(s) reviewed by me Problem List/Assessment/Plan Problem List/Assessment/Plan Atypical chest pain Supraventricular tachycardia Hyperthyroidism? was a subclinical Likely Sleep apnea Down syndrome Dyslipidemia Obesity 32.7 kg/m2 Plan/recommendation -continue monitor telemetry few episode of SVT, cardiology consultation was done -As per cardiology outpatient follow-up -Echocardiogram: Significant sinus bradycardia. Right atrial enlargement. Valves are normal. EF of 65-70% with normal RV function. Doppler unremarkable. No pericardial effusion masses or vegetations. -continue aspirin 81 mg p.o. daily, atorvastatin 40 mg p.o. daily. -low TSH, pending free T4 -possible sleep apnea, advised for follow-up with primary care physician/pulmonology for outpatient evaluation for sleep apnea -dyslipidemia: Elevated triglyceride, LDL level. Continue atorvastatin 40 mg p.o. daily Goals of care discussed with parents, and the patient for 20 minutes, full code status. Plan discussed with Dr. Hooper Plan discussed with: Patient, Other (RN) Dietary Evaluation Review Comments: CCHO-60 plus cardiac diet Expected Outcomes/Goals: gradual wt loss, controlled DM Addendum Addendum Addendum I was physically present for the araujo portions of the service provided to patient by THE RESIDENT. I have reviewed the documentation, discussed the case with resident and agree with the resident's documentation except as noted. Also the patient's clinical case was discussed with the patient's nurse. This medical document was created using an electronic medical record system with computerized dictation system. Although this document has been carefully reviewed, there might still be some phonetic and typographical errors. These areas are purely typographical due to imperfections of the software programs, and do not reflect any compromise in the patient's medical care. Late signature. Date of Service: December 21, 2024 Billing Provider: LEFTY HOOPER MD Common Visit Codes: 80513-[id number] INP/OBS CARE(HIGH) Secondary Visit Codes: 94034-AALJADUG CARE PLAN 30 MINUTES (20 minutes) BHAKTI FRANK RESIDENT December 21, 2024 11:11 LEFTY HOOPER MD December 22, 2024 04:41
[2024-12-21] MEDS: ASPirin 81 mg TAB PO SCH (11:38)
[2024-12-21 13:00] VITALS: BP 105/50; PULSE 85; RESP 19; TEMP 98.3; O2SAT 96
[2024-12-21 20:00] VITALS: PULSE 75; PULSE 87; RESP 17; O2SAT 98
[2024-12-21 21:00] VITALS: BP 126/61; PULSE 75; RESP 18; TEMP 98; O2SAT 95
[2024-12-22 01:00] VITALS: BP 100/55; PULSE 68; RESP 17; TEMP 97.9; O2SAT 100
[2024-12-22 05:00] VITALS: BP 100/55; PULSE 68; RESP 17; TEMP 97.9; O2SAT 100
[2024-12-22 08:00] VITALS: PULSE 87; RESP 20; O2SAT 98
[2024-12-22 09:00] VITALS: BP 109/60; PULSE 64; RESP 18; TEMP 97.8; O2SAT 96
[2024-12-22] MEDS ORDERED: METH5TAB98 PO (10:32)
[2024-12-22] MEDS ORDERED: ASPI81CH59 PO (10:32)
[2024-12-22] MEDS ORDERED: ATOR40TA52 PO (10:32)
--- NOTE | 2024-12-22 11:07 | DVHDSRES ---
Discharge Summary Date of Admission Resident Creating Document: EDGARD VALDIVIA RESIDENT December 20, 2024 at 10:34 Date of Discharge: December 22, 2024 Admitting Diagnosis Chest pain and palpitations Wounds: No open wound was present Labs/Diagnostic Data: Laboratory Results Test 12/21/24 04:41 12/20/24 10:34 12/20/24 09:38 12/20/24 06:40 White Blood Count 5.4 10^3/uL (4.4-10.8) Red Blood Count 4.84 10^6/uL (4.5-5.90) Hemoglobin 14.9 g/dL (13.5-17.5) Hematocrit 44.4 % (41.0-53.0) Mean Corpuscular Volume 91.8 fL (80.0-100.0) Mean Corpuscular Hemoglobin 30.7 pg (28.0-32.0) Mean Corpuscular Hemoglobin Concent 33.5 g/dL (32.0-36.0) Red Cell Distribution Width 16.0 % (11.8-14.3) Platelet Count 226 10^3/uL (140-450) Mean Platelet Volume 9.1 fL (6.9-10.8) Neutrophils (%) (Auto) 51.9 % (37.0-80.0) Lymphocytes (%) (Auto) 27.3 % (10.0-50.0) Monocytes (%) (Auto) 16.2 % (0.0-12.0) Eosinophils (%) (Auto) 1.5 % (0.0-7.0) Basophils (%) (Auto) 3.1 % (0.0-2.0) Neutrophils # (Auto) 2.8 10 ^3/uL (1.6-8.6) Lymphocytes # (Auto) 1.5 10 ^3/uL (0.4-5.4) Monocytes # (Auto) 0.9 10 ^3/uL (0-1.3) Eosinophils # (Auto) 0.1 10 ^3/uL (0-0.8) Basophils # (Auto) 0.2 10 ^3/uL (0-0.2) Nucleated Red Blood Cells 0.2 % Sodium Level 140 mmol/L (136-145) Potassium Level 4.2 mmol/L (3.5-5.1) Chloride Level 108 mmol/L (98-107) Carbon Dioxide Level 25 mmol/L (20-31) Anion Gap 7 (5-15) Blood Urea Nitrogen 13 mg/dL (9-23) Creatinine 0.80 mg/dL (0.700-1.30) Glomerular Filtration Rate Calc 122 mL/min (>90) BUN/Creatinine Ratio 16.3 (10.0-20.0) Serum Glucose 105 mg/dL (74-106) Calcium Level 10.0 mg/dL (8.7-10.4) Magnesium Level 2.1 mg/dL (1.6-2.6) Free Thyroxine (T4) Calculated 2.35 ng/dL (0.89-1.76) Urine Opiates Screen Neg (NEGATIVE) Urine Fentanyl Screen Neg (NEGATIVE) Urine Barbiturates Screen Neg (NEGATIVE) Urine Phencyclidine Screen Neg (NEGATIVE) Urine Amphetamines Screen Neg (NEGATIVE) Urine Benzodiazepines Screen Neg (NEGATIVE) Urine Cocaine Screen Neg (NEGATIVE) Urine Cannabinoids Screen Neg (NEGATIVE) Troponin I High Sensitivity 10 ng/L (</=54) Triglycerides Level 183 mg/dL (< 150) Cholesterol Level 173 mg/dL (< 200) LDL Cholesterol 120 mg/dL (< 100) HDL Cholesterol 37 mg/dL (40-59) Thyroid Stimulating Hormone (TSH) < 0.01 uIU/mL (0.55-4.78) Prothrombin Time 10.6 sec (9.3-11.8) Prothrombin Time INR 1.00 (0.9-1.15) Activated Partial Thromboplast Time 26.5 SEC (24.5-34.5) D-Dimer, Quantitative 0.27 mg/L FEU (0.0-0.49) Hemoglobin A1c 5.6 % A1C (<5.7) Test 12/20/24 06:32 Urine Color Colorless (Yellow) Urine Clarity Clear (Clear) Urine pH 5.5 (5.0-9.0) Urine Specific [place] 1.007 (1.001-1.035) Urine Protein Negative (Negative) Urine Ketones Negative (Negative) Urine Blood Negative /uL (Negative) Urine Nitrite Negative (Negative) Urine Bilirubin Negative (Negative) Urine Urobilinogen Normal mg/dL (Negative) Urine Leukocyte Esterase Negative /uL (Negative) Urine RBC None seen /hpf (0 - 3) Urine Microscopic WBC < 1 /HPF (0-3) Urine Squamous Epithelial Cells None seen /hpf (<5) Urine Bacteria None seen /hpf (None Seen) Urine Glucose Normal mg/dL (Normal) Other Laboratory Tests 12/21/24 04:41 Brief Hx & Hospital Course: Julito Leija is a 29-year-old male with past medical history of hyperlipidemia, heart murmur, and Down syndrome presented to the ED with chest pain and palpitations for 1 day prior to this admission. Patient's mom reports that chest pain was radiating to neck with shortness of breath and it started in his sleep. Patient's mom reported that he was grabbing his chest and told his mom that it was my heart. 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 Hospital course: Initial EKG revealed borderline left axis deviation, T-wave abnormalities in inferior lead and troponins were unremarkable. Telemetry monitoring revealed few episodes of SVT, cardiology recommended outpatient follow up. echo demonstrated sinus bradycardia, right atrial enlargement, EF of 65-70% with normal RV function, no pericardial effusion masses or vegetations. TSH was low and free T4 was high. For possible sleep apnea advised the patient mom to follow up with primary care or reclamation kettle tender for outpatient evaluation for sleep apnea. Lipid profile showed elevated triglyceride, elevated LDL and low HDL. Discharge plan was discussed with the family and all questions were answered. Patient is being discharged to home with aspirin 81 mg daily, atorvastatin 40 mg at , methimazole 5 mg daily and advised the family to follow up with [place] clinic on December 31 at 1:00 p.m. and with Cardiology in 1-2 weeks. Physical examination on discharge: Pleasant man, not in acute distress. Alert and oriented time place and person. General: Patient alert and oriented in person, place and time. Patient following commands. HEENT: Normocephalic, atraumatic, moist mucous membranes Respiratory/pulmonary: Clear lungs bilaterally, vesicular murmurs present in almost all lung ch[place], no associated crackles or wheezes. Cardiovascular: Normal heart sounds S1 and S2 with no associated murmurs Abdomen: Abdomen nondistended, there is no pain to palpation in any of the abdominal quadrants, no palpable masses. Extremities: There is no peripheral edema present at the lower extremities. Peripheral Pulses: 3+ Radial (R). 3+ Radial (L). 3+ Dorsalis pedis (R). 3+ Dorsalis pedis(L) Skin: No rashes or pruritus, there is no sacral edema present at this time. Neurological: Intact cranial nerves with no focal neurologic deficits Discussed with Dr. Hooper Consults/Reason for consult Cardiology was consulted for chest pain and palpitation Operations or Procedures EXAM: XR Chest, 1 View CLINICAL INDICATION: CP FINDINGS: LUNGS AND PLEURAL SPACES: Unremarkable. No consolidation. No pneumothorax. HEART: Unremarkable. No cardiomegaly. MEDIASTINUM: Unremarkable. Normal mediastinal contour. BONES/JOINTS: Unremarkable. No acute fracture. OTHER FINDINGS: . None. IMPRESSION: No acute cardiopulmonary process. EXAM: LIMITED Two-dimensional and M-mode echocardiogram with Doppler and color Doppler. Blood Pressure: 109/59 mmHg INDICATION Chest Pain RISK FACTORS Height: 5' 4", Weight: 192 DIMENSIONS LVDd 4.4 (3.8-5.7cm) LA (2D) 3.7 (1.9-4.0cm) Aortic Root 2.3 (2.0- 3.7cm) LVDs 2.8 (2.5-4.0cm) LA (MM) (1.9-4.0cm) Aortic Cusp Exc 1.4 (1.5- 2.0cm) EF (%) 68.0 (55-70%) Rt. Atrium 4.2 (1.9-4.0cm) Asc. Aorta cm IVSd 0.8 (0.7-1.1cm) RV (D) (1.8-2.4cm) PWd 1.0 (0.7-1.1cm) Mitral Valve Mitral Mitral Stenosis E wave 1.50m/s MV Mean GR. mmHg A wave 0.70m/s MV Peak GR. mmHg E/A ratio 2.1 2D MVA cm2 Aortic Valve Aortic Valve Aortic Stenosis V1 1.40m/s AO Mean GR. 10mmHg V2 2.20m/s AO Peak GR. 20mmHg LVOT Diameter 1.8 (1.8-2.4cm) Doppler [place] 1.62cm2 Pulmonic Valve V2 1.40m/s Tricuspid Valve TR Velocity 2.90m/s RVSP 40mmHg Other Information Quality : Rhythm : Bradycardia Conclusion Technically good study. Significant sinus bradycardia. Right atrial enlargement. Valves are normal. EF of 65-70% with normal RV function. Dopplers unremarkable. No pericardial effusion masses or vegetations. Condition at Discharge: Stable Final Diagnosis/Problems List Chest pain ruled out ACS Supraventricular tachycardia Hyperthyroidism Likely Sleep apnea Down syndrome Dyslipidemia Obesity 32.7 kg/m2 Discharge Disposition: Home Discharge Instruct/Medications Diet: Cardiac 2g Na,low cholest Activity: No Restrictions, As Tolerated Follow Up/Referral: Follow up with [place] clinic on December 31 at 1:00 PM Follow up with Outpatient Cardiology in 1-2 weeks Medications: Aspirin 81 mg daily, atorvastatin 40 mg at HS, methimazole 5 mg daily Discharge Statement: "Patient was advised to return to the ER or call 911 if any headaches, dizziness, shortness of breath, chest pain, abdominal pain, bleeding, fevers, or worsening of medical condition. Patient was counseled about treatment plan, medications, possible side effects, patientverbalized understanding. All questions were answered to the best of my ability. This discharge took greater then 30 minutes in planning, reviewing documentation, counseling the patient, and discussing with other team members." ASSESSMENT ASSESSMENT Assessment Chest pain ruled out ACS Supraventricular tachycardia Hyperthyroidism Likely Sleep apnea Down syndrome Dyslipidemia Obesity 32.7 kg/m2 Addendum Addendum Addendum I was physically present for the araujo portions of the service provided to patient by THE RESIDENT. I have reviewed the documentation, discussed the case with resident and agree with the resident's documentation except as noted. Also the patient's clinical case was discussed with the patient's nurse. This medical document was created using an electronic medical record system with computerized dictation system. Although this document has been carefully reviewed, there might still be some phonetic and typographical errors. These areas are purely typographical due to imperfections of the software programs, and do not reflect any compromise in the patient's medical care. Late signature. Date of Service: December 22, 2024 Billing Provider: LEFTY HOOPER MD Common Visit Codes: 92441-EAQ/OBS DISCH DAY >30min EDGARD VALDIVIA RESIDENT December 22, 2024 11:07 LEFTY HOOPER MD December 23, 2024 12:02
[2024-12-22 12:40] VITALS: BP 110/52; PULSE 60; RESP 18; TEMP 97.8; O2SAT 100
== END 2024-12-22 13:40 | disposition home or self-care (01) | DRG 201 ==
LOC: ER 06:24 → OVERFLOW 10:34 → TELE-CENTR 21:00
PROVIDERS: ADMIT Internal Medicine; ATTEND Internal Medicine
DX: I47.10 Supraventricular tachycardia, unspecified (principal); E05.90 Thyrotoxicosis, unspecified without thyrotoxic crisis or storm; G47.30 Sleep apnea, unspecified; Q90.9 Down syndrome, unspecified; E78.5 Hyperlipidemia, unspecified; E66.9 Obesity, unspecified; I10 Essential (primary) hypertension; Z80.3 Family history of malignant neoplasm of breast; Z82.49 Family history of ischemic heart disease and other diseases of the circulatory system; Z83.3 Family history of diabetes mellitus; Z79.899 Other long term (current) drug therapy; Z68.32 Body mass index [BMI] 32.0-32.9, adult
CPT/HCPCS: 36415; 71045; 80048; 80061; 80307; 81001; 83036; 83735; 84439; 84443; 84484; 85025; 85379; 85610; 85730; 93005; 93306; 99291; G0378